=== PATIENT | male | born 1965 | race Caucasian/White ===

== ENCOUNTER 2019-01-29 05:27 | Day surgery (SDC) | payer MEDICARE, MEDICAID ==
[~2019-01-29] VITALS: Ht 172.7 cm; Wt 71.7 kg
[~2019-01-29 05:27] MED LIST: ASPI-1393 PO; DOXE1CAP2 PO; EZET10TA13 PO; FOLI0.8T7 PO; METO-396 PO; METO-539 PO; MIDO5TAB PO; PRAS10TA6 PO; SEVE800T8 PO; ZOLP10TA6 PO; [UNRECOGNIZED DRUG - OTHER]; flaxseed oil; megared; midodrine
[2019-01-29] MEDS ORDERED: NORMAL SALINE 0.9% 10 ML SYR ONE (06:45)
[2019-01-29] MEDS ORDERED: BUPIVACAINE HCL/PF 0.5% (5MG/ML) 10ML ONE (06:45)
[2019-01-29] MEDS ORDERED: BACITRACIN 50,000 UNITS/VIAL ONE (06:45)
[2019-01-29] MEDS ORDERED: SKIN ADHESIVE 0.7 GM EA TOP ONE (06:45)
[2019-01-29] MEDS ORDERED: LIDOCAINE HCL 1% 20ML VIAL (Pyxis) INJ ONE (06:45)
[2019-01-29] MEDS ORDERED: SODIUM CHLORIDE 0.9% 500 ML IV ONE (07:00)
[2019-01-29] MEDS ORDERED: PROPOFOL 200MG/20ML VIAL IV ONE (07:11)
[2019-01-29] MEDS ORDERED: MIDAZOLAM HCL 2 MG/2 ML VIAL ONE (07:11)
[2019-01-29] MEDS ORDERED: CARV12.545 PO (07:12)
[2019-01-29] MEDS ORDERED: LIDOCAINE HCL/PF 1% 10 MG/ML 5ML VIAL ONE (07:12)
[2019-01-29] MEDS ORDERED: CLOP75TA33 PO (07:12)
[2019-01-29] MEDS ORDERED: FENTANYL CITRATE/PF 50MCG/ML 2ML VIAL ONE (07:12)
[2019-01-29] MEDS ORDERED: ATOR20TA65 PO (07:12)
[2019-01-29] MEDS ORDERED: FURO80TA3 PO (07:12)
[2019-01-29] MEDS ORDERED: MIDO10TA PO (07:33)
[2019-01-29] MEDS ORDERED: ALBU90AE IH (07:33)
[2019-01-29] MEDS ORDERED: SEVE800T8 PO (07:33)
[2019-01-29] MEDS ORDERED: MILK500C PO (07:33)
[2019-01-29] MEDS ORDERED: INSU100I28 SQ (07:33)
== END 2019-01-29 09:50 | disposition home or self-care (01) ==
LOC: OR 05:27
PROVIDERS: ATTEND Specialist
DX: L72.0 Epidermal cyst (principal); L72.3 Sebaceous cyst; I13.2 Hypertensive heart and chronic kidney disease with heart failure and with stage 5 chronic kidney disease, or end stage renal disease; E11.22 Type 2 diabetes mellitus with diabetic chronic kidney disease; N18.6 End stage renal disease; I50.9 Heart failure, unspecified; I25.10 Atherosclerotic heart disease of native coronary artery without angina pectoris; I42.9 Cardiomyopathy, unspecified; J45.909 Unspecified asthma, uncomplicated; K21.9 Gastro-esophageal reflux disease without esophagitis; D64.9 Anemia, unspecified; Z95.1 Presence of aortocoronary bypass graft; Z99.2 Dependence on renal dialysis; Z98.890 Other specified postprocedural states; Z79.82 Long term (current) use of aspirin; Z79.899 Other long term (current) drug therapy; Z79.4 Long term (current) use of insulin
CPT/HCPCS: 11403; 12032; 36415; 80048; 82962; 88304; 93005; J2250; J2704; J3010; J3490

== ENCOUNTER 2019-04-05 12:55 | Inpatient (IN) | payer MEDICARE, MEDICAID ==
[~2019-04-05] VITALS: Ht 172.7 cm; Wt 76.7 kg
[~2019-04-05 12:55] MED LIST changes: +ALBU90AE IH; +ATOR20TA65 PO; +CARV12.545 PO; +CLOP75TA33 PO; -DOXE1CAP2 PO; -EZET10TA13 PO; +FURO80TA3 PO; +INSU100I28 SQ; -METO-396 PO; -METO-539 PO; +MIDO10TA PO; -MIDO5TAB PO; +MILK500C PO; -PRAS10TA6 PO; -[UNRECOGNIZED DRUG - OTHER]; -flaxseed oil; -megared; -midodrine
[2019-04-05 14:11] LABS: BASOPHILS % 0.4 % (0.0-2.0); EOSINOPHILS % 0.9 % (0.0-5.0); HEMATOCRIT. 41.9 % (42.0-52.0); HEMOGLOBIN. 14.2 g/dL (14.0-18.0); LYMPHOCYTES % 11.4 % (20.0-50.0); MEAN CORPUSCULAR VOLUME 97.3 fL (80.0-94.0); MEAN PLATELET VOLUME 8.9 fl (7.4-10.4); MONOCYTES % 5.5 % (2.0-8.0); NEUTROPHILS % 81.8 % (40.0-76.0); PLATELET 145 x1000/uL (130-400); RED BLOOD CELL COUNT 4.31 mill/uL (4.7-6.1); RED CELL DISTRIBUTION WIDTH 16.3 % (11.6-14.6)
[2019-04-05 14:24] LABS: CHLORIDE 95 mEq/L (98-107)
[2019-04-05] MEDS ORDERED: MAGNESIUM/ALUMINUM HYDROXIDE/SIMETHICONE 30ML UDC PO PRN (19:00)
[2019-04-05] MEDS ORDERED: PIPERACILLIN/TAZ 3.375G PREMIX 50 ML IV SCH (19:00)
[2019-04-05] MEDS ORDERED: IPRATROPIUM/ALBUTEROL 0.5-3(2.5)MG/3ML NEB NEB PRN (19:00)
[2019-04-05] MEDS ORDERED: ACETAMINOPHEN 325MG TABLET PO PRN (19:00)
[2019-04-05] MEDS ORDERED: DIPHENHYDRAMINE 50MG/ML VIAL IV PRN (19:00)
[2019-04-05] MEDS ORDERED: LORAZEPAM 0.5MG TABLET PO PRN (19:00)
[2019-04-05] MEDS ORDERED: CLONIDINE 0.1MG TABLET PO PRN (19:00)
[2019-04-05] MEDS ORDERED: DOCUSATE SODIUM 100MG CAPSULE PO PRN (19:00)
[2019-04-05] MEDS ORDERED: TRAMADOL 50MG TABLET PO PRN (19:00)
[2019-04-05] MEDS ORDERED: ONDANSETRON HCL 4MG/2ML INJ IV PRN (19:00)
[2019-04-05] MEDS ORDERED: NITROGLYCERIN 0.4MG TABLET SL SL PRN (19:00)
[2019-04-05] MEDS ORDERED: GUAIFENESIN 200MG/10ML SUGAR FREE UDC PO PRN (19:00)
[2019-04-05 20:22] VITALS: BP 80/51
[2019-04-05] MEDS ORDERED: DEXTROSE 50% WATER 50ML SYRINGE IV PRN (20:30)
[2019-04-05] MEDS ORDERED: SODIUM CHLORIDE 0.9% 1000ML BAG (SEPSIS BOLUS) IV ONE (20:45)
[2019-04-05] MEDS ORDERED: SODIUM CHLORIDE 0.9% 1,000 ML IV SCH (21:00)
[2019-04-05 21:50] VITALS: BP 99/23
[2019-04-05] MEDS: ATORVASTATIN CALCIUM 20MG TABLET PO SCH (21:50)
[2019-04-05] MEDS: FAMOTIDINE 20MG TABLET PO SCH (21:50)
[2019-04-05] MEDS: ENOXAPARIN 30MG/0.3ML SYR SUBCUT SCH (21:50)
[2019-04-05] MEDS: BLOOD SUGAR DIAGNOSTIC STRIP TEST SCH (21:51)
[2019-04-05] MEDS: ZOLPIDEM TARTRATE 5MG TABLET PO PRN (21:57)
[2019-04-05] MEDS ORDERED: PIPERACILLIN/TAZOBACTAM 2.25 G in DEXTROSE 5% WATER 50 ML IV SCH (22:00)
[2019-04-05] MEDS: INSULIN LISPRO 100 UNITS/ML SUBCUT SCH (22:07)
[2019-04-05] MEDS ORDERED: VANCOMYCIN 1250MG in DEXTROSE 5% WATER 250ML IV NR (23:00)
[2019-04-05] MEDS ORDERED: INFLUENZA VIRUS VACCINE(AFLURIA) 0.5ML SYR IM ONE (23:45)
[2019-04-06] VITALS: BP 88/20
[2019-04-06] MEDS ORDERED: TEMA30CA PO
[2019-04-06 00:11] LABS: CREATINE KINASE MB FRACTION 1.2 ng/mL (0.5-3.6)
[2019-04-06] MEDS: PIPERACILLIN/TAZOBACTAM 2.25 G in DEXTROSE 5% WATER 50 ML IV SCH ×3 (00:47→17:08)
[2019-04-06] MEDS: VANCOMYCIN 1250MG in DEXTROSE 5% WATER 250ML IV NR (01:35)
[2019-04-06 04:00] VITALS: BP 89/24
[2019-04-06 06:49] LABS: CREATINE KINASE MB FRACTION 1.2 ng/mL (0.5-3.6)
[2019-04-06] MEDS: BLOOD SUGAR DIAGNOSTIC STRIP TEST SCH ×4 (07:40→21:48)
[2019-04-06] MEDS: INSULIN LISPRO 100 UNITS/ML SUBCUT SCH ×4 (07:40→21:48)
[2019-04-06 08:16] VITALS: BP 98/30
[2019-04-06] MEDS: SEVELAMER CARBONATE 800 MG TABLET PO SCH ×3 (08:24→18:13)
[2019-04-06] MEDS: FOLIC ACID/VITAMIN B COMP W-C TABLET PO SCH (08:29)
[2019-04-06] MEDS: FAMOTIDINE 20MG TABLET PO SCH (08:29)
[2019-04-06] MEDS: CLOPIDOGREL 75MG TABLET PO SCH (08:29)
[2019-04-06] MEDS: ASPIRIN 325MG EC TABLET PO SCH (08:29)
[2019-04-06] MEDS: MIDODRINE HCL 5MG TABLET PO SCH ×3 (08:30→17:09)
[2019-04-06 11:47] VITALS: BP 92/20
[2019-04-06 15:43] VITALS: BP 106/23
[2019-04-06 20:00] VITALS: BP_SYST 103; BP_SYST 82; BP_DIAS 30; BP_DIAS 40
[2019-04-06] MEDS: ATORVASTATIN CALCIUM 20MG TABLET PO SCH (21:46)
[2019-04-06] MEDS: ENOXAPARIN 30MG/0.3ML SYR SUBCUT SCH (21:47)
[2019-04-06] MEDS: ZOLPIDEM TARTRATE 5MG TABLET PO PRN (23:08)
[2019-04-07] VITALS: BP 86/35
[2019-04-07] MEDS: PIPERACILLIN/TAZOBACTAM 2.25 G in DEXTROSE 5% WATER 50 ML IV SCH ×3 (01:45→16:47)
[2019-04-07] MEDS: VANCOMYCIN 1250MG in DEXTROSE 5% WATER 250ML IV NR (03:04)
[2019-04-07 04:00] VITALS: BP 92/34
[2019-04-07] MEDS: BLOOD SUGAR DIAGNOSTIC STRIP TEST SCH ×4 (07:21→20:58)
[2019-04-07 08:00] VITALS: BP 111/59
[2019-04-07] MEDS: SEVELAMER CARBONATE 800 MG TABLET PO SCH ×3 (08:37→18:38)
[2019-04-07] MEDS: ASPIRIN 325MG EC TABLET PO SCH (08:38)
[2019-04-07] MEDS: INSULIN LISPRO 100 UNITS/ML SUBCUT SCH ×4 (08:38→21:09)
[2019-04-07] MEDS: FAMOTIDINE 20MG TABLET PO SCH (08:38)
[2019-04-07] MEDS: CLOPIDOGREL 75MG TABLET PO SCH (08:38)
[2019-04-07] MEDS: FOLIC ACID/VITAMIN B COMP W-C TABLET PO SCH (08:39)
[2019-04-07] MEDS: MIDODRINE HCL 5MG TABLET PO SCH ×3 (08:42→16:22)
[2019-04-07 12:00] VITALS: BP 118/46
[2019-04-07 16:00] VITALS: BP 100/35
[2019-04-07 19:43] VITALS: BP 116/52
[2019-04-07] MEDS: ENOXAPARIN 30MG/0.3ML SYR SUBCUT SCH (20:58)
[2019-04-07] MEDS: ATORVASTATIN CALCIUM 20MG TABLET PO SCH (20:58)
[2019-04-07] MEDS: ZOLPIDEM TARTRATE 5MG TABLET PO PRN (22:15)
[2019-04-08] VITALS: BP 115/41
[2019-04-08] MEDS: PIPERACILLIN/TAZOBACTAM 2.25 G in DEXTROSE 5% WATER 50 ML IV SCH ×3 (00:22→18:34)
[2019-04-08 04:00] VITALS: BP 112/48
[2019-04-08] MEDS: BLOOD SUGAR DIAGNOSTIC STRIP TEST SCH ×4 (06:47→21:22)
[2019-04-08 07:04] LABS: BASOPHILS % 0.4 % (0.0-2.0); EOSINOPHILS % 1.3 % (0.0-5.0); HEMATOCRIT. 32.9 % (42.0-52.0); HEMOGLOBIN. 11.2 g/dL (14.0-18.0); LYMPHOCYTES % 16.4 % (20.0-50.0); MEAN CORPUSCULAR VOLUME 96.5 fL (80.0-94.0); MEAN PLATELET VOLUME 8.8 fl (7.4-10.4); MONOCYTES % 8.7 % (2.0-8.0); NEUTROPHILS % 73.2 % (40.0-76.0); PLATELET 91 x1000/uL (130-400); RED BLOOD CELL COUNT 3.41 mill/uL (4.7-6.1)
[2019-04-08 08:00] VITALS: BP 145/74
[2019-04-08] MEDS: INSULIN LISPRO 100 UNITS/ML SUBCUT SCH ×4 (08:10→21:22)
[2019-04-08] MEDS: ASPIRIN 325MG EC TABLET PO SCH (08:58)
[2019-04-08] MEDS: FOLIC ACID/VITAMIN B COMP W-C TABLET PO SCH (08:58)
[2019-04-08] MEDS: SEVELAMER CARBONATE 800 MG TABLET PO SCH ×3 (08:58→18:33)
[2019-04-08] MEDS: CLOPIDOGREL 75MG TABLET PO SCH (08:58)
[2019-04-08] MEDS: FAMOTIDINE 20MG TABLET PO SCH (09:09)
[2019-04-08] MEDS: MIDODRINE HCL 5MG TABLET PO SCH ×4 (09:09→18:33)
[2019-04-08 12:00] VITALS: BP 145/74
[2019-04-08 20:00] VITALS: BP 126/41
[2019-04-08] MEDS: ATORVASTATIN CALCIUM 20MG TABLET PO SCH (21:21)
[2019-04-08] MEDS: ENOXAPARIN 30MG/0.3ML SYR SUBCUT SCH (21:21)
[2019-04-08] MEDS: ZOLPIDEM TARTRATE 5MG TABLET PO PRN (22:45)
[2019-04-09] VITALS: BP 102/40
[2019-04-09] MEDS: PIPERACILLIN/TAZOBACTAM 2.25 G in DEXTROSE 5% WATER 50 ML IV SCH ×2 (01:05→08:50)
[2019-04-09 04:00] VITALS: BP 96/50
[2019-04-09 08:00] VITALS: BP 114/54
[2019-04-09] MEDS: INSULIN LISPRO 100 UNITS/ML SUBCUT SCH (08:10)
[2019-04-09] MEDS: BLOOD SUGAR DIAGNOSTIC STRIP TEST SCH (08:24)
[2019-04-09] MEDS: SEVELAMER CARBONATE 800 MG TABLET PO SCH (08:49)
[2019-04-09] MEDS: FOLIC ACID/VITAMIN B COMP W-C TABLET PO SCH (08:49)
[2019-04-09] MEDS: FAMOTIDINE 20MG TABLET PO SCH (08:50)
[2019-04-09] MEDS: CLOPIDOGREL 75MG TABLET PO SCH (08:50)
[2019-04-09] MEDS: ASPIRIN 325MG EC TABLET PO SCH (08:50)
[2019-04-09] MEDS: MIDODRINE HCL 5MG TABLET PO SCH ×2 (08:50→09:00)
[2019-04-09 10:20] VITALS: BP 114/54
== END 2019-04-09 10:37 | disposition home or self-care (01) | DRG 871 ==
LOC: ER 12:55 → 7WST 18:37 → SUPCPDRO 18:44 → ENRESERV 19:38
PROVIDERS: ADMIT Internal Medicine; ATTEND Internal Medicine
PROC: 5A1D70Z Performance of Urinary Filtration, Intermittent, Less than 6 Hours Per Day (ICD-10-PCS; principal; 2019-04-07)
DX: A41.9 Sepsis, unspecified organism (principal); N18.6 End stage renal disease; E87.1 Hypo-osmolality and hyponatremia; I13.2 Hypertensive heart and chronic kidney disease with heart failure and with stage 5 chronic kidney disease, or end stage renal disease; E87.2 Acidosis; E11.22 Type 2 diabetes mellitus with diabetic chronic kidney disease; I50.9 Heart failure, unspecified; J44.9 Chronic obstructive pulmonary disease, unspecified; R68.0 Hypothermia, not associated with low environmental temperature; K74.60 Unspecified cirrhosis of liver; I25.10 Atherosclerotic heart disease of native coronary artery without angina pectoris; K76.9 Liver disease, unspecified; E78.00 Pure hypercholesterolemia, unspecified; Z79.899 Other long term (current) drug therapy; Z99.2 Dependence on renal dialysis; Z95.1 Presence of aortocoronary bypass graft; Z79.4 Long term (current) use of insulin
CPT/HCPCS: 36415; 71045; 80048; 80061; 80202; 82550; 82553; 82962; 83036; 83605; 83735; 83880; 84484; 90686; 93005; 93306; 93970; 97162; 97165; 99285; J1650; J1815; J2543; J3370; J7060

== ENCOUNTER 2019-07-30 16:01 | Inpatient (IN) | payer MEDICARE, MEDICAID ==
[~2019-07-30] VITALS: Ht 167.6 cm; Wt 79.2 kg
[~2019-07-30 16:01] MED LIST changes: -ASPI-1393 PO; +ASPI-1497 PO; -FURO80TA3 PO; +TEMA30CA PO; -ZOLP10TA6 PO
[2019-07-30] MEDS ORDERED: IBUPROFEN 600MG TABLET PO ONE (18:00)
[2019-07-30 18:45] LABS: HEMATOCRIT 39.1 % (42.0-52.0); HEMOGLOBIN 13.5 g/dL (14.0-18.0); MEAN CORPUSCULAR HEMOGLOBIN 33.8 pg (28.0-32.0); PLATELET 120 x1000/uL (130-400); RED BLOOD CELL COUNT 3.98 mill/uL (4.7-6.1); RED CELL DISTRIBUTION WIDTH 16.2 % (11.6-14.6)
[2019-07-30] MEDS ORDERED: CLINDAMYCIN 600 MG in DEXTROSE 5% WATER 50 ML IV ONE (21:00)
[2019-07-30] MEDS ORDERED: HYDROCODONE/ACETAMINOPHEN 5/325MG TABLET PO ONE (21:00)
[2019-07-30] MEDS ORDERED: SODIUM CHLORIDE 0.9% 1,000 ML IV ONE (21:00)
[2019-07-31 03:00] VITALS: BP 107/38
[2019-07-31] MEDS ORDERED: LISI2.5T47 MT (03:16)
[2019-07-31] MEDS ORDERED: BRIM5DRO EACHEYE (03:18)
[2019-07-31 04:00] VITALS: BP 107/38
[2019-07-31] MEDS ORDERED: EZET10TA13 MT (04:14)
[2019-07-31] MEDS ORDERED: FURO80TA87 MT (04:14)
[2019-07-31] MEDS ORDERED: METO2.5T14 MT (04:14)
[2019-07-31] MEDS ORDERED: DEXTROSE 50% WATER 50ML SYRINGE IV PRN (04:30)
[2019-07-31] MEDS ORDERED: ZOLPIDEM TARTRATE 5MG TABLET PO PRN (05:00)
[2019-07-31] MEDS: PIPERACILLIN/TAZOBACTAM 2.25 G in DEXTROSE 5% WATER 50 ML IV SCH ×2 (05:50→22:06)
[2019-07-31] MEDS: BLOOD SUGAR DIAGNOSTIC STRIP TEST SCH ×4 (06:00→21:00)
[2019-07-31] MEDS: INSULIN LISPRO 100 UNITS/ML SUBCUT SCH ×4 (06:00→22:38)
[2019-07-31 08:00] VITALS: BP 110/47
[2019-07-31] MEDS ORDERED: VANCOMYCIN 1250MG in DEXTROSE 5% WATER 250ML IV NR (08:00)
[2019-07-31] MEDS ORDERED: MILK THISTLE 500 MG PO SCH (09:00)
[2019-07-31] MEDS ORDERED: CARVEDILOL 12.5MG TABLET PO SCH (09:00)
[2019-07-31] MEDS ORDERED: LISINOPRIL 2.5MG TABLET PO SCH (09:00)
[2019-07-31] MEDS: EZETIMIBE 10MG TABLET PO SCH (09:00)
[2019-07-31] MEDS: BRIMONIDINE 0.2% OPHTH DROPS 5ML BOTHEYE SCH ×3 (09:09→17:59)
[2019-07-31] MEDS: FUROSEMIDE 40MG TABLET PO SCH (09:10)
[2019-07-31] MEDS: MIDODRINE HCL 5MG TABLET PO SCH ×3 (09:10→17:58)
[2019-07-31] MEDS: ASPIRIN 81MG EC TABLET PO SCH (09:10)
[2019-07-31] MEDS: SEVELAMER CARBONATE 800 MG TABLET PO SCH ×3 (09:11→17:58)
[2019-07-31 12:00] VITALS: BP 88/62
[2019-07-31 16:00] VITALS: BP 84/39
[2019-07-31 20:00] VITALS: BP 101/24
[2019-07-31] MEDS: ATORVASTATIN CALCIUM 20MG TABLET PO SCH (22:07)
[2019-08-01] VITALS: BP 90/34
[2019-08-01 04:00] VITALS: BP 85/33
[2019-08-01] MEDS: BLOOD SUGAR DIAGNOSTIC STRIP TEST SCH ×4 (06:46→21:04)
[2019-08-01] MEDS: INSULIN LISPRO 100 UNITS/ML SUBCUT SCH ×4 (06:46→21:00)
[2019-08-01 08:22] LABS: BASOPHILS % 0.3 % (0.0-2.0); EOSINOPHILS % 3.3 % (0.0-5.0); HEMATOCRIT. 33.1 % (42.0-52.0); HEMOGLOBIN. 11.5 g/dL (14.0-18.0); MEAN CORPUSCULAR HEMOGLOBIN 33.7 pg (28.0-32.0); MONOCYTES % 7.9 % (2.0-8.0); NEUTROPHILS % 68.5 % (40.0-76.0); PLATELET 101 x1000/uL (130-400); RED BLOOD CELL COUNT 3.41 mill/uL (4.7-6.1); RED CELL DISTRIBUTION WIDTH 15.5 % (11.6-14.6)
[2019-08-01] MEDS ORDERED: IOHEXOL-350 100 ML BOTTLE ONE (08:58)
[2019-08-01] MEDS: SEVELAMER CARBONATE 800 MG TABLET PO SCH ×3 (09:04→17:04)
[2019-08-01] MEDS: PIPERACILLIN/TAZOBACTAM 2.25 G in DEXTROSE 5% WATER 50 ML IV SCH ×2 (09:05→21:43)
[2019-08-01] MEDS: MIDODRINE HCL 5MG TABLET PO SCH ×3 (09:05→17:04)
[2019-08-01] MEDS: BRIMONIDINE 0.2% OPHTH DROPS 5ML BOTHEYE SCH ×3 (09:05→17:04)
[2019-08-01] MEDS: ASPIRIN 81MG EC TABLET PO SCH (09:05)
[2019-08-01] MEDS: FUROSEMIDE 40MG TABLET PO SCH (09:05)
[2019-08-01] MEDS: EZETIMIBE 10MG TABLET PO SCH (09:06)
[2019-08-01 12:00] VITALS: BP 93/43
[2019-08-01] MEDS ORDERED: HEPARIN SODIUM 1,000 UNIT/1ML VIAL IV ONE (12:13)
[2019-08-01] MEDS: MORPHINE SULFATE 2 MG/ML CPJ (NOT FOR IM USE) IV PRN (13:38)
[2019-08-01] MEDS ORDERED: FENTANYL CITRATE/PF 50MCG/ML 2ML VIAL ONE (15:03)
[2019-08-01] MEDS ORDERED: MIDAZOLAM HCL 2 MG/2 ML VIAL ONE (15:03)
[2019-08-01] MEDS ORDERED: IODIXANOL 320MG/ML 100 ML BOTTLE IV ONE (15:04)
[2019-08-01] MEDS ORDERED: IOHEXOL-300 100 ML BOTTLE ONE (15:04)
[2019-08-01] MEDS ORDERED: LIDOCAINE HCL 1% 20ML VIAL (Pyxis) INJ ONE (15:04)
[2019-08-01] MEDS: CLOPIDOGREL 75MG TABLET PO SCH (17:04)
[2019-08-01 20:00] VITALS: BP 102/52
[2019-08-01] MEDS ORDERED: VANCOMYCIN 750 MG PREMIX 150 ML IV NR (20:00)
[2019-08-01] MEDS: ATORVASTATIN CALCIUM 20MG TABLET PO SCH (21:43)
[2019-08-01 22:00] VITALS: BP 116/57
[2019-08-02] VITALS (12 sets, daily range): BP systolic 99–139; BP diastolic 47–94
[2019-08-02] MEDS: BLOOD SUGAR DIAGNOSTIC STRIP TEST SCH ×4 (06:50→21:00)
[2019-08-02 06:57] LABS: BASOPHILS % 0.4 % (0.0-2.0); EOSINOPHILS % 2.8 % (0.0-5.0); HEMATOCRIT. 33.4 % (42.0-52.0); HEMOGLOBIN. 11.8 g/dL (14.0-18.0); LYMPHOCYTES % 20.6 % (20.0-50.0); MEAN CORPUSCULAR HEMOGLOBIN 33.8 pg (28.0-32.0); MEAN CORPUSCULAR VOLUME 95.7 fL (80.0-94.0); MEAN PLATELET VOLUME 8.8 fl (7.4-10.4); MONOCYTES % 6.5 % (2.0-8.0); NEUTROPHILS % 69.7 % (40.0-76.0); PLATELET 112 x1000/uL (130-400); RED BLOOD CELL COUNT 3.49 mill/uL (4.7-6.1); RED CELL DISTRIBUTION WIDTH 15.9 % (11.6-14.6)
[2019-08-02] MEDS: INSULIN LISPRO 100 UNITS/ML SUBCUT SCH ×4 (07:20→21:00)
[2019-08-02] MEDS: ASPIRIN 81MG EC TABLET PO SCH (08:39)
[2019-08-02] MEDS: CLOPIDOGREL 75MG TABLET PO SCH (08:39)
[2019-08-02] MEDS: SEVELAMER CARBONATE 800 MG TABLET PO SCH ×3 (08:39→17:34)
[2019-08-02] MEDS: FUROSEMIDE 40MG TABLET PO SCH (08:39)
[2019-08-02] MEDS: MIDODRINE HCL 5MG TABLET PO SCH ×3 (08:39→17:34)
[2019-08-02] MEDS: EZETIMIBE 10MG TABLET PO SCH ×2 (08:46→08:50)
[2019-08-02] MEDS ORDERED: HYDROCODONE/ACETAMINOPHEN 10/325MG TABLET PO NR (11:00)
[2019-08-02] MEDS: BRIMONIDINE 0.2% OPHTH DROPS 5ML BOTHEYE SCH ×3 (11:12→17:34)
[2019-08-02] MEDS: AMOXICILLIN/POTASSIUM CLAVULANATE 500/125MG TAB PO SCH (13:49)
[2019-08-02] MEDS ORDERED: HYDROCODONE/ACETAMINOPHEN 10/325MG TABLET PO PRN (14:00)
[2019-08-02] MEDS ORDERED: ONDANSETRON HCL 4MG/2ML INJ IV PRN (17:45)
[2019-08-02] MEDS ORDERED: AMOXICILLIN/POTASSIUM CLAVULANATE 500/125MG TAB PO SCH (21:00)
[2019-08-02] MEDS: ATORVASTATIN CALCIUM 20MG TABLET PO SCH (21:20)
[2019-08-03] VITALS (11 sets, daily range): BP systolic 93–131; BP diastolic 44–73
[2019-08-03] MEDS: BLOOD SUGAR DIAGNOSTIC STRIP TEST SCH ×4 (07:12→21:00)
[2019-08-03] MEDS: INSULIN LISPRO 100 UNITS/ML SUBCUT SCH ×4 (07:20→21:00)
[2019-08-03] MEDS: SEVELAMER CARBONATE 800 MG TABLET PO SCH ×3 (07:42→17:22)
[2019-08-03] MEDS: MORPHINE SULFATE 2 MG/ML CPJ (NOT FOR IM USE) IV PRN ×2 (07:43→21:38)
[2019-08-03] MEDS: ASPIRIN 81MG EC TABLET PO SCH (08:47)
[2019-08-03] MEDS: CLOPIDOGREL 75MG TABLET PO SCH (08:47)
[2019-08-03] MEDS: FUROSEMIDE 40MG TABLET PO SCH ×2 (08:47→08:50)
[2019-08-03] MEDS: AMOXICILLIN/POTASSIUM CLAVULANATE 500/125MG TAB PO SCH (08:47)
[2019-08-03] MEDS: MIDODRINE HCL 5MG TABLET PO SCH ×3 (08:47→17:22)
[2019-08-03] MEDS: EZETIMIBE 10MG TABLET PO SCH (08:51)
[2019-08-03] MEDS: BRIMONIDINE 0.2% OPHTH DROPS 5ML BOTHEYE SCH ×3 (09:00→17:22)
[2019-08-03] MEDS ORDERED: HYDR-4009 MT (12:30)
[2019-08-03] MEDS: ATORVASTATIN CALCIUM 20MG TABLET PO SCH (21:37)
[2019-08-04] VITALS: BP 106/63
[2019-08-04 02:00] VITALS: BP 116/61
[2019-08-04 04:00] VITALS: BP 107/56
[2019-08-04 06:00] VITALS: BP 103/58
[2019-08-04] MEDS: INSULIN LISPRO 100 UNITS/ML SUBCUT SCH (07:20)
[2019-08-04] MEDS: BLOOD SUGAR DIAGNOSTIC STRIP TEST SCH (07:31)
[2019-08-04 08:00] VITALS: BP 116/64
[2019-08-04] MEDS: AMOXICILLIN/POTASSIUM CLAVULANATE 500/125MG TAB PO SCH (08:02)
[2019-08-04] MEDS: CLOPIDOGREL 75MG TABLET PO SCH (08:02)
[2019-08-04] MEDS: FUROSEMIDE 40MG TABLET PO SCH (08:02)
[2019-08-04] MEDS: SEVELAMER CARBONATE 800 MG TABLET PO SCH (08:03)
[2019-08-04] MEDS: MIDODRINE HCL 5MG TABLET PO SCH (08:03)
[2019-08-04] MEDS: ASPIRIN 81MG EC TABLET PO SCH (08:03)
[2019-08-04] MEDS: BRIMONIDINE 0.2% OPHTH DROPS 5ML BOTHEYE SCH (08:04)
[2019-08-04] MEDS: EZETIMIBE 10MG TABLET PO SCH (08:04)
[2019-08-04 08:49] VITALS: BP 116/64
== END 2019-08-04 09:05 | disposition home or self-care (01) | DRG 252 ==
LOC: ER 16:01 → 6EST 22:09 → EDBEDREQ 22:10 → EDBEDREQTM 22:10 → ENRESERV 07-31 02:02 → 3WST 08-01 16:38
PROVIDERS: ADMIT Internal Medicine; ATTEND Internal Medicine
PROC: 047Q3ZZ Dilation of Left Anterior Tibial Artery, Percutaneous Approach (ICD-10-PCS; principal; 2019-08-01)
PROC: 047S3ZZ Dilation of Left Posterior Tibial Artery, Percutaneous Approach (ICD-10-PCS; 2019-08-01)
PROC: 5A1D70Z Performance of Urinary Filtration, Intermittent, Less than 6 Hours Per Day (ICD-10-PCS; 2019-08-01)
PROC: 5A1D70Z Performance of Urinary Filtration, Intermittent, Less than 6 Hours Per Day (ICD-10-PCS; 2019-08-02)
DX: E11.52 Type 2 diabetes mellitus with diabetic peripheral angiopathy with gangrene (principal); N18.6 End stage renal disease; I13.2 Hypertensive heart and chronic kidney disease with heart failure and with stage 5 chronic kidney disease, or end stage renal disease; I70.202 Unspecified atherosclerosis of native arteries of extremities, left leg; D63.8 Anemia in other chronic diseases classified elsewhere; E87.5 Hyperkalemia; L98.499 Non-pressure chronic ulcer of skin of other sites with unspecified severity; E11.22 Type 2 diabetes mellitus with diabetic chronic kidney disease; E11.622 Type 2 diabetes mellitus with other skin ulcer; E78.00 Pure hypercholesterolemia, unspecified; E78.5 Hyperlipidemia, unspecified; I25.10 Atherosclerotic heart disease of native coronary artery without angina pectoris; I50.9 Heart failure, unspecified; J44.9 Chronic obstructive pulmonary disease, unspecified; K74.60 Unspecified cirrhosis of liver; Z86.73 Personal history of transient ischemic attack (TIA), and cerebral infarction without residual deficits; Z99.2 Dependence on renal dialysis; Z95.1 Presence of aortocoronary bypass graft; Z79.899 Other long term (current) drug therapy; Z79.82 Long term (current) use of aspirin; Z79.4 Long term (current) use of insulin
CPT/HCPCS: 36415; 37228; 37232; 73630; 75635; 75710; 80048; 80202; 82962; 83036; 85025; 85027; 85347; 99285; C1725; C1760; C1769; C1893; C1894; J1642; J1644; J1815; J2250; J2270; J2405; J2543; J3010; J3370; J3490; J7030; J7060; Q9967

== ENCOUNTER 2019-08-12 10:42 | Inpatient (IN) | payer MEDICARE, MEDICAID ==
[2019-08-12] VITALS (14 sets, daily range): BP systolic 97–132; BP diastolic 43–64
[~2019-08-12] VITALS: Ht 172.7 cm; Wt 81.6 kg
[~2019-08-12 10:42] MED LIST changes: +BRIM5DRO EACHEYE; -CLOP75TA33 PO; +EZET10TA13 MT; -FOLI0.8T7 PO; +FURO80TA87 MT; +HYDR-4009 MT; +LISI2.5T47 MT; +METO2.5T14 MT
[2019-08-12 11:58] LABS: BASOPHILS % 0.7 % (0.0-2.0); EOSINOPHILS % 1.6 % (0.0-5.0); HEMATOCRIT. 29.1 % (42.0-52.0); HEMOGLOBIN. 9.9 g/dL (14.0-18.0); LYMPHOCYTES % 7.4 % (20.0-50.0); MEAN CORPUSCULAR HEMOGLOBIN 33.7 pg (28.0-32.0); MEAN CORPUSCULAR VOLUME 98.4 fL (80.0-94.0); MEAN PLATELET VOLUME 8.4 fl (7.4-10.4); MONOCYTES % 6.4 % (2.0-8.0); NEUTROPHILS % 83.9 % (40.0-76.0); PLATELET 132 x1000/uL (130-400); RED BLOOD CELL COUNT 2.95 mill/uL (4.7-6.1); RED CELL DISTRIBUTION WIDTH 15.3 % (11.6-14.6)
[2019-08-12 12:05] LABS: PROTHROMBIN TIME 10.8 sec (9.6-11.0)
[2019-08-12 12:18] LABS: CHLORIDE 91 mEq/L (98-107)
[2019-08-12] MEDS ORDERED: INSULIN REGULAR (HUMULIN R) 300UNITS/3ML IV ONE (12:45)
[2019-08-12] MEDS ORDERED: CALCIUM GLUCONATE 1,000 MG in DEXT 5% WATER 100 ML IV ONE (12:45)
[2019-08-12] MEDS ORDERED: SODIUM CHLORIDE 0.9% 1,000 ML IV ONE (12:45)
[2019-08-12] MEDS ORDERED: DEXTROSE 50% WATER 50ML SYRINGE IV ONE (12:45)
[2019-08-12] MEDS ORDERED: ALBUTEROL (0.083%) 2.5MG/3ML NEB HHN ONE (12:45)
[2019-08-12] MEDS ORDERED: SODIUM BICARBONATE 8.4% 1 MEQ/ML 50ML SYR IV ONE (12:45)
[2019-08-12] MEDS ORDERED: GUAIFENESIN 200MG/10ML SUGAR FREE UDC PO PRN (14:45)
[2019-08-12] MEDS ORDERED: CLONIDINE 0.1MG TABLET PO PRN (14:45)
[2019-08-12] MEDS ORDERED: ACETAMINOPHEN 325MG TABLET PO PRN ×2 (14:45)
[2019-08-12] MEDS ORDERED: DEXTROSE 50% WATER 50ML SYRINGE IV PRN (14:45)
[2019-08-12] MEDS ORDERED: DIPHENHYDRAMINE 50MG/ML VIAL IV PRN (14:45)
[2019-08-12] MEDS ORDERED: NITROGLYCERIN 0.4MG TABLET SL SL PRN (14:45)
[2019-08-12] MEDS ORDERED: ONDANSETRON HCL 4MG/2ML INJ IV PRN (14:45)
[2019-08-12] MEDS ORDERED: MAGNESIUM/ALUMINUM HYDROXIDE/SIMETHICONE 30ML UDC PO PRN (14:45)
[2019-08-12] MEDS ORDERED: CEFAZOLIN 1000MG PREMIX 50 ML IV NR (15:00)
[2019-08-12] MEDS ORDERED: SODIUM BICARBONATE 4% (2.4MEQ) 5ML VIAL IV ONE (15:03)
[2019-08-12] MEDS ORDERED: HEPARIN 1000 UNITS/ML 10ML ONE (15:03)
[2019-08-12] MEDS ORDERED: LIDOCAINE HCL 1% 20ML VIAL (Pyxis) INJ ONE (15:03)
[2019-08-12] MEDS ORDERED: FENTANYL CITRATE/PF 50MCG/ML 2ML VIAL ONE (15:25)
[2019-08-12] MEDS ORDERED: FENTANYL CITRATE/PF 50MCG/ML 2ML VIAL IV ONE (15:45)
[2019-08-12] MEDS: MIDODRINE HCL 5MG TABLET PO SCH ×2 (16:33→17:00)
[2019-08-12] MEDS: SEVELAMER CARBONATE 800 MG TABLET PO SCH (17:00)
[2019-08-12] MEDS: BLOOD SUGAR DIAGNOSTIC STRIP TEST SCH ×2 (17:42→21:00)
[2019-08-12] MEDS: INSULIN LISPRO 100 UNITS/ML SUBCUT SCH ×2 (17:42→21:00)
[2019-08-12] MEDS: ENOXAPARIN 30MG/0.3ML SYR SUBCUT SCH (21:00)
[2019-08-12] MEDS: FAMOTIDINE 20MG TABLET PO SCH (22:24)
[2019-08-12] MEDS: ASCORBIC ACID 500 MG TABLET PO SCH (22:25)
[2019-08-12] MEDS: TRAMADOL 50MG TABLET PO PRN (22:26)
[2019-08-12] MEDS ORDERED: VANCOMYCIN 1500MG in DEXTROSE 5% WATER 250ML IV NR (23:00)
[2019-08-13] VITALS (12 sets, daily range): BP systolic 90–117; BP diastolic 40–81
[2019-08-13 00:14] LABS: CREATINE KINASE 444 IU/L (39-308)
[2019-08-13 00:16] LABS: CREATINE KINASE MB FRACTION 1.3 ng/mL (0.5-3.6)
[2019-08-13] MEDS: PIPERACILLIN/TAZ 3.375G PREMIX 50 ML IV SCH ×3 (02:04→22:54)
[2019-08-13] MEDS: ZOLPIDEM TARTRATE 5MG TABLET PO PRN ×2 (02:09→22:56)
[2019-08-13 07:13] LABS: BASOPHILS % 0.3 % (0.0-2.0); EOSINOPHILS % 2.2 % (0.0-5.0); HEMOGLOBIN. 10.3 g/dL (14.0-18.0); LYMPHOCYTES % 9.6 % (20.0-50.0); MEAN CORPUSCULAR HEMOGLOBIN 33.8 pg (28.0-32.0); MEAN CORPUSCULAR VOLUME 98.1 fL (80.0-94.0); MEAN PLATELET VOLUME 8.1 fl (7.4-10.4); MONOCYTES % 9.5 % (2.0-8.0); NEUTROPHILS % 78.4 % (40.0-76.0); PLATELET 103 x1000/uL (130-400); RED BLOOD CELL COUNT 3.06 mill/uL (4.7-6.1); RED CELL DISTRIBUTION WIDTH 15.6 % (11.6-14.6)
[2019-08-13] MEDS: BLOOD SUGAR DIAGNOSTIC STRIP TEST SCH ×4 (07:30→20:54)
[2019-08-13 07:32] LABS: CHLORIDE 103 mEq/L (98-107)
[2019-08-13 07:40] LABS: CREATINE KINASE 272 IU/L (39-308)
[2019-08-13 07:42] LABS: CREATINE KINASE MB FRACTION < 1.0 ng/mL (0.5-3.6)
[2019-08-13] MEDS: INSULIN LISPRO 100 UNITS/ML SUBCUT SCH ×4 (08:00→20:55)
[2019-08-13] MEDS: TRAMADOL 50MG TABLET PO PRN (08:38)
[2019-08-13] MEDS: ASPIRIN 325MG EC TABLET PO SCH (08:50)
[2019-08-13] MEDS: CLOPIDOGREL 75MG TABLET PO SCH (08:50)
[2019-08-13] MEDS: ZINC SULFATE 220 MG ( 50 ) CAPSULE PO SCH (08:51)
[2019-08-13] MEDS: SEVELAMER CARBONATE 800 MG TABLET PO SCH ×3 (08:51→18:20)
[2019-08-13] MEDS: ASCORBIC ACID 500 MG TABLET PO SCH ×2 (08:51→20:52)
[2019-08-13] MEDS: MIDODRINE HCL 5MG TABLET PO SCH ×3 (08:51→18:20)
[2019-08-13] MEDS ORDERED: ENOXAPARIN 40MG/0.4ML SYR SUBCUT SCH (09:00)
[2019-08-13] MEDS: HYDROCODONE/ACETAMINOPHEN 10/325MG TABLET PO PRN ×3 (11:38→20:54)
[2019-08-13] MEDS: GABAPENTIN 100MG CAPSULE PO SCH (18:20)
[2019-08-13] MEDS: FAMOTIDINE 20MG TABLET PO SCH (20:52)
[2019-08-13] MEDS: ENOXAPARIN 30MG/0.3ML SYR SUBCUT SCH (20:52)
[2019-08-13] MEDS: SILVER SULFADIAZINE 1% CREAM 50GM TOP SCH (22:54)
[2019-08-14] VITALS (12 sets, daily range): BP systolic 88–122; BP diastolic 41–78
[2019-08-14 06:55] LABS: BASOPHILS % 0.2 % (0.0-2.0); EOSINOPHILS % 2.6 % (0.0-5.0); HEMATOCRIT. 29.4 % (42.0-52.0); HEMOGLOBIN. 9.9 g/dL (14.0-18.0); LYMPHOCYTES % 10.9 % (20.0-50.0); MEAN CORPUSCULAR HEMOGLOBIN 33.3 pg (28.0-32.0); MEAN PLATELET VOLUME 8.4 fl (7.4-10.4); MONOCYTES % 8.6 % (2.0-8.0); NEUTROPHILS % 77.7 % (40.0-76.0); PLATELET 106 x1000/uL (130-400); RED BLOOD CELL COUNT 2.97 mill/uL (4.7-6.1); RED CELL DISTRIBUTION WIDTH 15.6 % (11.6-14.6)
[2019-08-14] MEDS: BLOOD SUGAR DIAGNOSTIC STRIP TEST SCH ×4 (07:54→20:32)
[2019-08-14] MEDS: INSULIN LISPRO 100 UNITS/ML SUBCUT SCH ×4 (07:54→20:49)
[2019-08-14] MEDS: ASCORBIC ACID 500 MG TABLET PO SCH ×2 (08:41→20:25)
[2019-08-14] MEDS: SEVELAMER CARBONATE 800 MG TABLET PO SCH ×3 (08:41→17:16)
[2019-08-14] MEDS: ASPIRIN 325MG EC TABLET PO SCH (08:42)
[2019-08-14] MEDS: CLOPIDOGREL 75MG TABLET PO SCH (08:42)
[2019-08-14] MEDS: ZINC SULFATE 220 MG ( 50 ) CAPSULE PO SCH (08:42)
[2019-08-14] MEDS: MIDODRINE HCL 5MG TABLET PO SCH ×3 (08:42→17:16)
[2019-08-14] MEDS: GABAPENTIN 100MG CAPSULE PO SCH ×2 (08:42→17:21)
[2019-08-14] MEDS: HYDROCODONE/ACETAMINOPHEN 10/325MG TABLET PO PRN ×3 (08:43→20:32)
[2019-08-14] MEDS ORDERED: PIPERACILLIN/TAZOBACTAM 3.375 G in DEXT 5% WATER 100 ML IV SCH (09:00)
[2019-08-14] MEDS: SILVER SULFADIAZINE 1% CREAM 50GM TOP SCH (11:22)
[2019-08-14] MEDS: FAMOTIDINE 20MG TABLET PO SCH (20:25)
[2019-08-14] MEDS: PIPERACILLIN/TAZOBACTAM 2.25 G in DEXTROSE 5% WATER 50 ML IV SCH (20:49)
[2019-08-14] MEDS: ENOXAPARIN 30MG/0.3ML SYR SUBCUT SCH (20:50)
[2019-08-14] MEDS: EPOETIN ALFA 4000UNITS/ML VIAL SUBCUT SCH (20:51)
[2019-08-14] MEDS: ZOLPIDEM TARTRATE 5MG TABLET PO PRN (22:36)
[2019-08-15] VITALS (11 sets, daily range): BP systolic 83–154; BP diastolic 40–103
[2019-08-15] MEDS: HYDROCODONE/ACETAMINOPHEN 10/325MG TABLET PO PRN ×3 (02:02→19:58)
[2019-08-15] MEDS: PIPERACILLIN/TAZOBACTAM 2.25 G in DEXTROSE 5% WATER 50 ML IV SCH ×3 (05:21→21:12)
[2019-08-15] MEDS: BLOOD SUGAR DIAGNOSTIC STRIP TEST SCH ×4 (07:27→21:00)
[2019-08-15] MEDS: INSULIN LISPRO 100 UNITS/ML SUBCUT SCH ×4 (07:27→22:14)
[2019-08-15] MEDS: GABAPENTIN 100MG CAPSULE PO SCH ×2 (08:26→18:13)
[2019-08-15] MEDS: ASPIRIN 325MG EC TABLET PO SCH (08:27)
[2019-08-15] MEDS: ZINC SULFATE 220 MG ( 50 ) CAPSULE PO SCH (08:27)
[2019-08-15] MEDS: CLOPIDOGREL 75MG TABLET PO SCH (08:27)
[2019-08-15] MEDS: MIDODRINE HCL 5MG TABLET PO SCH ×3 (08:27→17:00)
[2019-08-15] MEDS: ASCORBIC ACID 500 MG TABLET PO SCH ×2 (08:27→21:11)
[2019-08-15] MEDS: SEVELAMER CARBONATE 800 MG TABLET PO SCH ×3 (08:27→18:13)
[2019-08-15] MEDS: SILVER SULFADIAZINE 1% CREAM 50GM TOP SCH (08:28)
[2019-08-15] MEDS ORDERED: VANCOMYCIN HCL 750 MG in DEXT 5% WATER 250 ML IV NR (12:00)
[2019-08-15] MEDS ORDERED: LIDOCAINE HCL/PF 1% 10 MG/ML 5ML VIAL ONE ×2 (14:04→14:57)
[2019-08-15] MEDS ORDERED: BUPIVACAINE HCL/PF 0.5% (5MG/ML) 10ML ONE (14:04)
[2019-08-15] MEDS ORDERED: NORMAL SALINE 0.9% 10 ML SYR ONE (14:04)
[2019-08-15] MEDS ORDERED: BACITRACIN 15GM TUBE TOP ONE (14:04)
[2019-08-15] MEDS ORDERED: BACITRACIN 50,000 UNITS/VIAL ONE (14:05)
[2019-08-15] MEDS ORDERED: PROPOFOL 200MG/20ML VIAL IV ONE (14:55)
[2019-08-15] MEDS ORDERED: FENTANYL CITRATE/PF 50MCG/ML 2ML VIAL ONE (14:57)
[2019-08-15] MEDS ORDERED: ONDANSETRON HCL 4MG/2ML INJ ONE (15:27)
[2019-08-15] MEDS ORDERED: EPHEDRINE SULFATE 50MG/ML VIAL ONE (15:27)
[2019-08-15] MEDS: FAMOTIDINE 20MG TABLET PO SCH (21:11)
[2019-08-15] MEDS: ENOXAPARIN 30MG/0.3ML SYR SUBCUT SCH (21:12)
[2019-08-16] VITALS (11 sets, daily range): BP systolic 114–141; BP diastolic 42–75
[2019-08-16] MEDS: HYDROCODONE/ACETAMINOPHEN 10/325MG TABLET PO PRN ×4 (00:39→22:04)
[2019-08-16] MEDS: PIPERACILLIN/TAZOBACTAM 2.25 G in DEXTROSE 5% WATER 50 ML IV SCH ×3 (06:23→21:24)
[2019-08-16] MEDS: BLOOD SUGAR DIAGNOSTIC STRIP TEST SCH ×4 (06:32→21:00)
[2019-08-16] MEDS: INSULIN LISPRO 100 UNITS/ML SUBCUT SCH ×4 (08:00→21:26)
[2019-08-16] MEDS: SEVELAMER CARBONATE 800 MG TABLET PO SCH ×3 (08:35→18:17)
[2019-08-16] MEDS: TRAMADOL 50MG TABLET PO PRN (08:35)
[2019-08-16] MEDS: SILVER SULFADIAZINE 1% CREAM 50GM TOP SCH (08:36)
[2019-08-16] MEDS: MIDODRINE HCL 5MG TABLET PO SCH ×3 (08:36→18:06)
[2019-08-16] MEDS: ASCORBIC ACID 500 MG TABLET PO SCH ×2 (08:36→21:24)
[2019-08-16] MEDS: ZINC SULFATE 220 MG ( 50 ) CAPSULE PO SCH (08:36)
[2019-08-16] MEDS: CLOPIDOGREL 75MG TABLET PO SCH (08:37)
[2019-08-16] MEDS: ASPIRIN 325MG EC TABLET PO SCH (08:37)
[2019-08-16] MEDS: GABAPENTIN 100MG CAPSULE PO SCH ×2 (08:44→18:05)
[2019-08-16 12:09] LABS: HEMATOCRIT. 27.3 % (42.0-52.0); HEMOGLOBIN. 9.2 g/dL (14.0-18.0); MEAN CORPUSCULAR HEMOGLOBIN 33.4 pg (28.0-32.0); MEAN CORPUSCULAR VOLUME 98.9 fL (80.0-94.0); MEAN PLATELET VOLUME 8.2 fl (7.4-10.4); PLATELET 107 x1000/uL (130-400); RED BLOOD CELL COUNT 2.76 mill/uL (4.7-6.1); RED CELL DISTRIBUTION WIDTH 15.2 % (11.6-14.6)
[2019-08-16 12:21] LABS: CHLORIDE 96 mEq/L (98-107)
[2019-08-16 13:00] LABS: PLATELET ESTIMATE DECREASED
[2019-08-16] MEDS: ENOXAPARIN 30MG/0.3ML SYR SUBCUT SCH (21:00)
[2019-08-16] MEDS: EPOETIN ALFA 4000UNITS/ML VIAL SUBCUT SCH (21:24)
[2019-08-16] MEDS: FAMOTIDINE 20MG TABLET PO SCH (21:24)
[2019-08-16] MEDS: ZOLPIDEM TARTRATE 5MG TABLET PO PRN (22:04)
[2019-08-17] VITALS (12 sets, daily range): BP systolic 76–120; BP diastolic 23–78
[2019-08-17] MEDS: PIPERACILLIN/TAZOBACTAM 2.25 G in DEXTROSE 5% WATER 50 ML IV SCH ×3 (06:39→21:30)
[2019-08-17 07:44] LABS: BASOPHILS % 0.4 % (0.0-2.0); EOSINOPHILS % 2.1 % (0.0-5.0); HEMATOCRIT. 24.7 % (42.0-52.0); HEMOGLOBIN. 8.4 g/dL (14.0-18.0); LYMPHOCYTES % 10.6 % (20.0-50.0); MEAN CORPUSCULAR HEMOGLOBIN 33.2 pg (28.0-32.0); MEAN CORPUSCULAR VOLUME 97.1 fL (80.0-94.0); MEAN PLATELET VOLUME 8.2 fl (7.4-10.4); MONOCYTES % 8.9 % (2.0-8.0); PLATELET 123 x1000/uL (130-400); RED BLOOD CELL COUNT 2.54 mill/uL (4.7-6.1)
[2019-08-17] MEDS: INSULIN LISPRO 100 UNITS/ML SUBCUT SCH ×4 (08:00→21:28)
[2019-08-17] MEDS: HYDROCODONE/ACETAMINOPHEN 10/325MG TABLET PO PRN ×2 (08:08→21:29)
[2019-08-17] MEDS: BLOOD SUGAR DIAGNOSTIC STRIP TEST SCH ×4 (08:12→21:30)
[2019-08-17] MEDS: SEVELAMER CARBONATE 800 MG TABLET PO SCH ×3 (09:32→17:51)
[2019-08-17] MEDS: MIDODRINE HCL 5MG TABLET PO SCH ×3 (09:32→17:50)
[2019-08-17] MEDS: ASCORBIC ACID 500 MG TABLET PO SCH ×2 (09:32→21:30)
[2019-08-17] MEDS: ASPIRIN 325MG EC TABLET PO SCH (09:32)
[2019-08-17] MEDS: CLOPIDOGREL 75MG TABLET PO SCH (09:32)
[2019-08-17] MEDS: ZINC SULFATE 220 MG ( 50 ) CAPSULE PO SCH (09:32)
[2019-08-17] MEDS: SILVER SULFADIAZINE 1% CREAM 50GM TOP SCH (09:33)
[2019-08-17] MEDS: GABAPENTIN 100MG CAPSULE PO SCH ×2 (09:35→18:12)
[2019-08-17] MEDS ORDERED: HYDROCODONE/ACETAMINOPHEN 10/325MG TABLET PO NR (10:00)
[2019-08-17] MEDS: DOCUSATE SODIUM 100MG CAPSULE PO PRN ×2 (10:45→17:50)
[2019-08-17] MEDS ORDERED: MORPHINE SULFATE 2 MG/ML CPJ (NOT FOR IM USE) IV PRN (13:45)
[2019-08-17] MEDS ORDERED: ZOLPIDEM TARTRATE 5MG TABLET PO PRN (21:15)
[2019-08-17] MEDS: ENOXAPARIN 30MG/0.3ML SYR SUBCUT SCH (21:28)
[2019-08-17] MEDS: ZOLPIDEM TARTRATE 5MG TABLET PO PRN (21:30)
[2019-08-17] MEDS: FAMOTIDINE 20MG TABLET PO SCH (21:30)
[2019-08-18] VITALS (13 sets, daily range): BP systolic 81–138; BP diastolic 44–98
[2019-08-18] MEDS: HYDROCODONE/ACETAMINOPHEN 10/325MG TABLET PO PRN ×4 (06:05→20:39)
[2019-08-18] MEDS: INSULIN LISPRO 100 UNITS/ML SUBCUT SCH ×3 (08:00→18:36)
[2019-08-18] MEDS: BLOOD SUGAR DIAGNOSTIC STRIP TEST SCH ×3 (08:15→18:01)
[2019-08-18] MEDS: ASPIRIN 325MG EC TABLET PO SCH (09:08)
[2019-08-18] MEDS: SEVELAMER CARBONATE 800 MG TABLET PO SCH ×3 (09:08→18:00)
[2019-08-18] MEDS: ZINC SULFATE 220 MG ( 50 ) CAPSULE PO SCH (09:09)
[2019-08-18] MEDS: ASCORBIC ACID 500 MG TABLET PO SCH (09:09)
[2019-08-18] MEDS: GABAPENTIN 100MG CAPSULE PO SCH ×2 (09:09→17:59)
[2019-08-18] MEDS: CLOPIDOGREL 75MG TABLET PO SCH (09:09)
[2019-08-18] MEDS: SILVER SULFADIAZINE 1% CREAM 50GM TOP SCH (09:13)
[2019-08-18] MEDS: DOCUSATE SODIUM 100MG CAPSULE PO PRN ×2 (09:13→18:00)
[2019-08-18] MEDS: MIDODRINE HCL 5MG TABLET PO SCH ×3 (09:19→18:00)
[2019-08-18] MEDS ORDERED: PIPERACILLIN/TAZOBACTAM 2.25 G in DEXTROSE 5% WATER 50 ML IV SCH (13:00)
[2019-08-18] MEDS ORDERED: GENTAMICIN 120MG PREMIX 100 ML IV NR (13:30)
[2019-08-18] MEDS ORDERED: LEVOFLOXACIN 500MG TABLET PO SCH (14:00)
[2019-08-19] MEDS ORDERED: EPOETIN ALFA 4000UNITS/ML VIAL SUBCUT SCH (21:00)
== END 2019-08-18 23:38 | DRG 853 ==
LOC: ER 10:42 → 5EST 13:47 → EDBEDREQSVC 13:57 → EDBEDREQ 13:57 → ENRESERV 19:23 → 5EST 21:48
PROVIDERS: ADMIT Internal Medicine; ATTEND Internal Medicine
PROC: 0JH63XZ Insertion of Tunneled Vascular Access Device into Chest Subcutaneous Tissue and Fascia, Percutaneous Approach (ICD-10-PCS; 2019-08-12)
PROC: 02H633Z Insertion of Infusion Device into Right Atrium, Percutaneous Approach (ICD-10-PCS; 2019-08-12)
PROC: B5181ZA Fluoroscopy of Superior Vena Cava using Low Osmolar Contrast, Guidance (ICD-10-PCS; 2019-08-12)
PROC: 5A1D70Z Performance of Urinary Filtration, Intermittent, Less than 6 Hours Per Day (ICD-10-PCS; 2019-08-12)
PROC: 5A1D70Z Performance of Urinary Filtration, Intermittent, Less than 6 Hours Per Day (ICD-10-PCS; 2019-08-14)
PROC: 0Y6T0Z0 Detachment at Right 3rd Toe, Complete, Open Approach (ICD-10-PCS; principal; 2019-08-15)
PROC: 0Y6V0Z0 Detachment at Right 4th Toe, Complete, Open Approach (ICD-10-PCS; 2019-08-15)
PROC: 0Y9M0ZZ Drainage of Right Foot, Open Approach (ICD-10-PCS; 2019-08-15)
DX: A41.9 Sepsis, unspecified organism (principal); N18.6 End stage renal disease; E11.52 Type 2 diabetes mellitus with diabetic peripheral angiopathy with gangrene; E44.1 Mild protein-calorie malnutrition; E87.1 Hypo-osmolality and hyponatremia; L97.409 Non-pressure chronic ulcer of unspecified heel and midfoot with unspecified severity; I13.2 Hypertensive heart and chronic kidney disease with heart failure and with stage 5 chronic kidney disease, or end stage renal disease; L02.611 Cutaneous abscess of right foot; L97.429 Non-pressure chronic ulcer of left heel and midfoot with unspecified severity; M86.8X7 Other osteomyelitis, ankle and foot; E87.5 Hyperkalemia; E11.22 Type 2 diabetes mellitus with diabetic chronic kidney disease; E11.621 Type 2 diabetes mellitus with foot ulcer; E83.51 Hypocalcemia; K74.60 Unspecified cirrhosis of liver; D63.8 Anemia in other chronic diseases classified elsewhere; M62.2 Nontraumatic ischemic infarction of muscle; B96.20 Unspecified Escherichia coli [E. coli] as the cause of diseases classified elsewhere; E11.69 Type 2 diabetes mellitus with other specified complication; E78.00 Pure hypercholesterolemia, unspecified; E78.5 Hyperlipidemia, unspecified; I25.10 Atherosclerotic heart disease of native coronary artery without angina pectoris; I50.9 Heart failure, unspecified; J44.9 Chronic obstructive pulmonary disease, unspecified; L03.031 Cellulitis of right toe; Z79.02 Long term (current) use of antithrombotics/antiplatelets; Z79.4 Long term (current) use of insulin; Z95.1 Presence of aortocoronary bypass graft; Z99.2 Dependence on renal dialysis; K76.9 Liver disease, unspecified; M19.90 Unspecified osteoarthritis, unspecified site; Z68.27 Body mass index [BMI] 27.0-27.9, adult; Z79.899 Other long term (current) drug therapy; I95.89 Other hypotension
CPT/HCPCS: 36415; 36581; 71045; 73630; 77001; 80048; 80053; 80061; 80202; 82550; 82553; 82962; 83036; 83605; 84484; 85025; 87070; 87075; 87077; 87186; 88305; 88311; 93005; 93923; 93970; 94640; 97162; 99152; 99153; 99291; C1769; J0610; J0690; J0885; J1580; J1644; J1650; J1815; J2270; J2405; J2543; J2704; J3010; J3370; J3490; J7030; J7060; G0500

== ENCOUNTER 2019-10-17 11:54 | Inpatient (IN) | payer MEDICARE, MEDICAID ==
[~2019-10-17] VITALS: Ht 175.3 cm; Wt 76.7 kg
[2019-10-17 13:39] LABS: BASOPHILS % 0.4 % (0.0-2.0); EOSINOPHILS % 0.8 % (0.0-5.0); HEMATOCRIT. 35.2 % (42.0-52.0); HEMOGLOBIN. 11.7 g/dL (14.0-18.0); LYMPHOCYTES % 12.2 % (20.0-50.0); MEAN CORPUSCULAR HEMOGLOBIN 31.3 pg (28.0-32.0); MEAN CORPUSCULAR VOLUME 94.1 fL (80.0-94.0); MEAN PLATELET VOLUME 8.5 fl (7.4-10.4); MONOCYTES % 10.3 % (2.0-8.0); NEUTROPHILS % 76.3 % (40.0-76.0); PLATELET 158 x1000/uL (130-400); RED BLOOD CELL COUNT 3.74 mill/uL (4.7-6.1); RED CELL DISTRIBUTION WIDTH 15.6 % (11.6-14.6)
[2019-10-17] MEDS ORDERED: CLINDAMYCIN 900 MG in DEXTROSE 5% WATER 50 ML IV ONE (13:45)
[2019-10-17 13:47] LABS: PROTHROMBIN TIME 10.7 sec (9.6-11.0)
[2019-10-17 13:51] LABS: CHLORIDE 94 mEq/L (98-107)
[2019-10-17 14:01] LABS: CREATINE KINASE 89 IU/L (39-308)
[2019-10-17] MEDS: PENICILLIN G POTASSIUM 5 MMU in DEXT 5% WATER 100 ML IV SCH ×2 (14:34→14:56)
[2019-10-17] MEDS: HYDROCODONE/ACETAMINOPHEN 10/325MG TABLET PO PRN ×2 (15:41→21:51)
[2019-10-17] MEDS ORDERED: MAGNESIUM/ALUMINUM HYDROXIDE/SIMETHICONE 30ML UDC PO PRN (19:15)
[2019-10-17] MEDS ORDERED: DEXTROSE 50% WATER 50ML SYRINGE IV PRN (19:15)
[2019-10-17] MEDS ORDERED: ACETAMINOPHEN 325MG TABLET PO PRN (19:15)
[2019-10-17] MEDS ORDERED: VANCOMYCIN 1 G PREMIX 200 ML IV SCH (19:15)
[2019-10-17] MEDS ORDERED: ONDANSETRON HCL 4MG/2ML INJ IV PRN (19:15)
[2019-10-17] MEDS ORDERED: GUAIFENESIN 200MG/10ML SUGAR FREE UDC PO PRN (19:15)
[2019-10-17] MEDS: CARVEDILOL 6.25 MG TABLET PO SCH (21:00)
[2019-10-17] MEDS: INSULIN LISPRO 100 UNITS/ML SUBCUT SCH (21:00)
[2019-10-17] MEDS: BLOOD SUGAR DIAGNOSTIC STRIP TEST SCH (21:02)
[2019-10-17] MEDS: ATORVASTATIN CALCIUM 20MG TABLET PO SCH (21:42)
[2019-10-17] MEDS: INSULIN GLARGINE UD 100 UNITS/ML SYR SUBCUT SCH (22:54)
[2019-10-17] MEDS: SODIUM CHLORIDE 0.9% INJ 3ML FLUSH IVF SCH (22:54)
[2019-10-18] MEDS: HYDROCODONE/ACETAMINOPHEN 10/325MG TABLET PO PRN ×4 (01:55→16:54)
[2019-10-18] MEDS: PENICILLIN G POTASSIUM 5 MMU in DEXT 5% WATER 100 ML IV SCH ×2 (02:42→08:45)
[2019-10-18] MEDS: SODIUM CHLORIDE 0.9% INJ 3ML FLUSH IVF SCH ×3 (06:00→22:27)
[2019-10-18] MEDS: INSULIN LISPRO 100 UNITS/ML SUBCUT SCH ×4 (08:20→21:00)
[2019-10-18] MEDS: CARVEDILOL 6.25 MG TABLET PO SCH ×2 (09:00→20:55)
[2019-10-18] MEDS: BLOOD SUGAR DIAGNOSTIC STRIP TEST SCH ×4 (09:43→21:00)
[2019-10-18] MEDS ORDERED: MIDODRINE HCL 5MG TABLET PO NR (09:45)
[2019-10-18 11:00] VITALS: BP 121/55
[2019-10-18] MEDS: MIDODRINE HCL 5MG TABLET PO SCH ×2 (14:09→17:00)
[2019-10-18 16:00] VITALS: BP 152/62
[2019-10-18] MEDS ORDERED: TETANUS, DIPHTHERIA, PERTUSSIS VAC/PF 0.5ML (>7YR OLD) IM ONE (18:00)
[2019-10-18] MEDS: PIPERACILLIN/TAZOBACTAM 2.25 G in DEXTROSE 5% WATER 50 ML IV SCH (18:01)
[2019-10-18 20:00] VITALS: BP 152/97
[2019-10-18] MEDS: ATORVASTATIN CALCIUM 20MG TABLET PO SCH (20:55)
[2019-10-18] MEDS ORDERED: VANCOMYCIN 1,750 MG in DEXT 5% WATER 250 ML IV NR (21:00)
[2019-10-18] MEDS ORDERED: ZOLPIDEM TARTRATE 5MG TABLET PO PRN (21:00)
[2019-10-18] MEDS: INSULIN GLARGINE UD 100 UNITS/ML SYR SUBCUT SCH (22:00)
[2019-10-18 23:37] VITALS: BP 98/48
[2019-10-19 04:20] VITALS: BP 120/65
[2019-10-19] MEDS ORDERED: TRIAMCINOLONE ACETONIDE 40MG/ML 1ML VIAL ONE ×2 (06:14→06:15)
[2019-10-19] MEDS ORDERED: BUPIVACAINE HCL/PF 0.5% (5MG/ML) 10ML ONE (06:16)
[2019-10-19] MEDS ORDERED: BACITRACIN 50,000 UNITS/VIAL ONE (06:16)
[2019-10-19] MEDS ORDERED: LIDOCAINE HCL 1% 20ML VIAL (Pyxis) INJ ONE (06:16)
[2019-10-19] MEDS: SODIUM CHLORIDE 0.9% INJ 3ML FLUSH IVF SCH ×3 (06:31→21:58)
[2019-10-19] MEDS: INSULIN LISPRO 100 UNITS/ML SUBCUT SCH ×4 (06:31→22:12)
[2019-10-19] MEDS: PIPERACILLIN/TAZOBACTAM 2.25 G in DEXTROSE 5% WATER 50 ML IV SCH ×2 (06:31→21:58)
[2019-10-19] MEDS: BLOOD SUGAR DIAGNOSTIC STRIP TEST SCH ×4 (06:31→21:58)
[2019-10-19 08:00] VITALS: BP 111/39
[2019-10-19] MEDS: MIDODRINE HCL 5MG TABLET PO SCH ×4 (08:29→17:41)
[2019-10-19] MEDS: HYDROCODONE/ACETAMINOPHEN 10/325MG TABLET PO PRN ×3 (08:29→23:50)
[2019-10-19] MEDS: CARVEDILOL 6.25 MG TABLET PO SCH ×3 (08:29→21:00)
[2019-10-19 16:00] VITALS: BP 136/64
[2019-10-19 20:00] VITALS: BP 131/57
[2019-10-19] MEDS: ATORVASTATIN CALCIUM 20MG TABLET PO SCH (21:58)
[2019-10-19] MEDS: INSULIN GLARGINE UD 100 UNITS/ML SYR SUBCUT SCH (23:46)
[2019-10-20] VITALS: BP 140/61
[2019-10-20] MEDS: ACETAMINOPHEN 325MG TABLET PO PRN ×2 (02:17→23:55)
[2019-10-20 04:00] VITALS: BP 124/52
[2019-10-20] MEDS: HYDROCODONE/ACETAMINOPHEN 10/325MG TABLET PO PRN ×3 (04:59→21:14)
[2019-10-20] MEDS: SODIUM CHLORIDE 0.9% INJ 3ML FLUSH IVF SCH ×2 (05:01→14:00)
[2019-10-20] MEDS: PIPERACILLIN/TAZOBACTAM 2.25 G in DEXTROSE 5% WATER 50 ML IV SCH ×2 (05:13→17:34)
[2019-10-20] MEDS: BLOOD SUGAR DIAGNOSTIC STRIP TEST SCH ×4 (06:40→21:10)
[2019-10-20] MEDS: INSULIN LISPRO 100 UNITS/ML SUBCUT SCH ×4 (06:40→21:00)
[2019-10-20] MEDS ORDERED: GENTAMICIN SULF 40MG/ML 2ML VIAL ONE (06:42)
[2019-10-20] MEDS ORDERED: LIDOCAINE HCL 1% 20ML VIAL (Pyxis) INJ ONE (06:42)
[2019-10-20] MEDS ORDERED: NORMAL SALINE 0.9% 10 ML SYR ONE ×2 (06:42→09:14)
[2019-10-20] MEDS ORDERED: BUPIVACAINE HCL/PF 0.5% (5MG/ML) 10ML ONE (06:42)
[2019-10-20] MEDS ORDERED: BACITRACIN 50,000 UNITS/VIAL ONE ×2 (06:43→09:14)
[2019-10-20 08:00] VITALS: BP 109/47
[2019-10-20] MEDS ORDERED: ROPIVACAINE HCL 10MG/ML 20 ML VIAL EPI ONE (08:47)
[2019-10-20] MEDS ORDERED: MIDAZOLAM HCL 5 MG/5 ML VIAL ONE (08:51)
[2019-10-20] MEDS: MIDODRINE HCL 5MG TABLET PO SCH ×3 (09:00→17:33)
[2019-10-20] MEDS: CARVEDILOL 6.25 MG TABLET PO SCH ×2 (09:00→21:00)
[2019-10-20] MEDS ORDERED: PROPOFOL 10MG/ML 100ML 100 ML IV ONE (09:20)
[2019-10-20] MEDS ORDERED: MORPHINE SULFATE 2 MG/ML CPJ (NOT FOR IM USE) IV PRN (10:15)
[2019-10-20] MEDS ORDERED: ONDANSETRON HCL 4MG/2ML INJ IV PRN (10:15)
[2019-10-20] MEDS ORDERED: HYDROMORPHONE HCL/PF 2MG/ML CPJ IV PRN (10:15)
[2019-10-20] MEDS ORDERED: BACITRACIN 15GM TUBE TOP ONE (10:33)
[2019-10-20] MEDS ORDERED: SODIUM CHLORIDE 0.9% 1,000 ML IV ONE (11:00)
[2019-10-20 12:00] VITALS: BP 121/71
[2019-10-20 16:00] VITALS: BP 107/53
[2019-10-20] MEDS ORDERED: MORPHINE SULFATE 4 MG/ML CPJ (NOT FOR IM USE) IV PRN (19:15)
[2019-10-20 20:00] VITALS: BP 103/58
[2019-10-20] MEDS: ATORVASTATIN CALCIUM 20MG TABLET PO SCH (21:14)
[2019-10-20] MEDS: INSULIN GLARGINE UD 100 UNITS/ML SYR SUBCUT SCH (21:15)
[2019-10-21] VITALS: BP 124/61
[2019-10-21] MEDS: HYDROCODONE/ACETAMINOPHEN 10/325MG TABLET PO PRN ×5 (01:29→21:47)
[2019-10-21 04:00] VITALS: BP 103/50
[2019-10-21] MEDS: PIPERACILLIN/TAZOBACTAM 2.25 G in DEXTROSE 5% WATER 50 ML IV SCH ×2 (07:40→19:01)
[2019-10-21] MEDS: BLOOD SUGAR DIAGNOSTIC STRIP TEST SCH ×4 (07:40→20:44)
[2019-10-21] MEDS: INSULIN LISPRO 100 UNITS/ML SUBCUT SCH ×4 (07:50→21:39)
[2019-10-21 08:00] VITALS: BP 150/65
[2019-10-21] MEDS: MORPHINE SULFATE 2 MG/ML CPJ (NOT FOR IM USE) IV PRN ×5 (08:18→23:31)
[2019-10-21] MEDS: MIDODRINE HCL 5MG TABLET PO SCH ×3 (08:20→16:26)
[2019-10-21] MEDS: CARVEDILOL 6.25 MG TABLET PO SCH ×2 (08:20→21:00)
[2019-10-21 08:30] LABS: BASOPHILS % 0.5 % (0.0-2.0); HEMOGLOBIN. 10.3 g/dL (14.0-18.0); MEAN CORPUSCULAR HEMOGLOBIN 31.2 pg (28.0-32.0); MEAN CORPUSCULAR VOLUME 94.2 fL (80.0-94.0); MEAN PLATELET VOLUME 8.4 fl (7.4-10.4); MONOCYTES % 7.8 % (2.0-8.0); NEUTROPHILS % 72.7 % (40.0-76.0); PLATELET 128 x1000/uL (130-400); RED BLOOD CELL COUNT 3.29 mill/uL (4.7-6.1); RED CELL DISTRIBUTION WIDTH 15.4 % (11.6-14.6)
[2019-10-21 12:00] VITALS: BP 160/71
[2019-10-21] MEDS: GABAPENTIN 300MG CAPSULE PO SCH ×2 (15:03→21:41)
[2019-10-21 16:00] VITALS: BP 161/64
[2019-10-21] MEDS ORDERED: VANCOMYCIN 750 MG PREMIX 150 ML IV NR (17:00)
[2019-10-21 20:00] VITALS: BP 156/77
[2019-10-21] MEDS: INSULIN GLARGINE UD 100 UNITS/ML SYR SUBCUT SCH (21:40)
[2019-10-21] MEDS: ATORVASTATIN CALCIUM 20MG TABLET PO SCH (21:41)
[2019-10-21] MEDS: SODIUM CHLORIDE 0.9% INJ 3ML FLUSH IVF SCH (21:49)
[2019-10-22] VITALS (7 sets, daily range): BP systolic 111–137; BP diastolic 47–63
[2019-10-22] MEDS: PIPERACILLIN/TAZOBACTAM 2.25 G in DEXTROSE 5% WATER 50 ML IV SCH ×2 (05:44→17:31)
[2019-10-22] MEDS: GABAPENTIN 300MG CAPSULE PO SCH ×3 (05:44→21:36)
[2019-10-22] MEDS: SODIUM CHLORIDE 0.9% INJ 3ML FLUSH IVF SCH ×3 (05:44→21:37)
[2019-10-22] MEDS: MORPHINE SULFATE 2 MG/ML CPJ (NOT FOR IM USE) IV PRN ×4 (06:00→19:01)
[2019-10-22] MEDS: BLOOD SUGAR DIAGNOSTIC STRIP TEST SCH ×4 (07:35→21:33)
[2019-10-22] MEDS: MIDODRINE HCL 5MG TABLET PO SCH ×3 (08:14→17:31)
[2019-10-22] MEDS: CARVEDILOL 6.25 MG TABLET PO SCH ×3 (08:17→21:00)
[2019-10-22] MEDS: INSULIN LISPRO 100 UNITS/ML SUBCUT SCH ×4 (08:18→21:00)
[2019-10-22] MEDS: HYDROCODONE/ACETAMINOPHEN 10/325MG TABLET PO PRN (08:49)
[2019-10-22] MEDS: ATORVASTATIN CALCIUM 20MG TABLET PO SCH (21:36)
[2019-10-22] MEDS: INSULIN GLARGINE UD 100 UNITS/ML SYR SUBCUT SCH (21:39)
== END 2019-10-22 22:50 | DRG 463 ==
LOC: ER 11:54 → 7EST 13:55 → EDBEDREQ 23:47 → ENRESERV 10-18 07:45 → 7EST 10-18 13:14 → 6EST 10-19 14:17
PROVIDERS: ADMIT Internal Medicine; ATTEND Internal Medicine
PROC: 5A1D70Z Performance of Urinary Filtration, Intermittent, Less than 6 Hours Per Day (ICD-10-PCS; 2019-10-18)
PROC: 5A1D70Z Performance of Urinary Filtration, Intermittent, Less than 6 Hours Per Day (ICD-10-PCS; 2019-10-19)
PROC: 0Y6M0Z9 Detachment at Right Foot, Partial 1st Ray, Open Approach (ICD-10-PCS; principal; 2019-10-20)
PROC: 0Y6M0ZB Detachment at Right Foot, Partial 2nd Ray, Open Approach (ICD-10-PCS; 2019-10-20)
PROC: 0JBR0ZZ Excision of Left Foot Subcutaneous Tissue and Fascia, Open Approach (ICD-10-PCS; 2019-10-20)
PROC: 0HXMXZZ Transfer Right Foot Skin, External Approach (ICD-10-PCS; 2019-10-20)
PROC: 0Y6M0ZF Detachment at Right Foot, Partial 5th Ray, Open Approach (ICD-10-PCS; 2019-10-20)
PROC: 0HBMXZZ Excision of Right Foot Skin, External Approach (ICD-10-PCS; 2019-10-20)
PROC: 5A1D70Z Performance of Urinary Filtration, Intermittent, Less than 6 Hours Per Day (ICD-10-PCS; 2019-10-21)
DX: T87.43 Infection of amputation stump, right lower extremity (principal); N18.6 End stage renal disease; E11.52 Type 2 diabetes mellitus with diabetic peripheral angiopathy with gangrene; M86.171 Other acute osteomyelitis, right ankle and foot; I13.2 Hypertensive heart and chronic kidney disease with heart failure and with stage 5 chronic kidney disease, or end stage renal disease; L97.419 Non-pressure chronic ulcer of right heel and midfoot with unspecified severity; L97.429 Non-pressure chronic ulcer of left heel and midfoot with unspecified severity; E11.40 Type 2 diabetes mellitus with diabetic neuropathy, unspecified; E11.22 Type 2 diabetes mellitus with diabetic chronic kidney disease; Z99.2 Dependence on renal dialysis; K74.60 Unspecified cirrhosis of liver; I25.10 Atherosclerotic heart disease of native coronary artery without angina pectoris; E11.69 Type 2 diabetes mellitus with other specified complication; D64.9 Anemia, unspecified; E11.621 Type 2 diabetes mellitus with foot ulcer; E78.00 Pure hypercholesterolemia, unspecified; E78.5 Hyperlipidemia, unspecified; G89.4 Chronic pain syndrome; J44.9 Chronic obstructive pulmonary disease, unspecified; Y83.5 Amputation of limb(s) as the cause of abnormal reaction of the patient, or of later complication, without mention of misadventure at the time of the procedure; M19.90 Unspecified osteoarthritis, unspecified site; G54.6 Phantom limb syndrome with pain; M20.42 Other hammer toe(s) (acquired), left foot; M20.41 Other hammer toe(s) (acquired), right foot; R26.9 Unspecified abnormalities of gait and mobility; I95.89 Other hypotension; E87.5 Hyperkalemia; I50.9 Heart failure, unspecified; Z79.4 Long term (current) use of insulin; Z95.1 Presence of aortocoronary bypass graft; Z79.82 Long term (current) use of aspirin; Z79.899 Other long term (current) drug therapy; Z03.818 Encounter for observation for suspected exposure to other biological agents ruled out
CPT/HCPCS: 36415; 71045; 73560; 73630; 80048; 80053; 80202; 82550; 82962; 83036; 83605; 83880; 84145; 84484; 85025; 86140; 88305; 88311; 90715; 93005; 97110; 97116; 97162; 97166; 97530; 99285; J1580; J1815; J2250; J2270; J2540; J2543; J2704; J2795; J3301; J3370; J3490; J7060; U0003